=== PATIENT | male | born 1990 | race Caucasian/White ===

== ENCOUNTER 2018-06-20 18:06 | Emergency (ER) | payer MEDICAID, OTHER ==
[2018-06-20] MEDS: CEFTRIAXONE 1 GM INJ IM (22:59)
== END 2018-06-20 23:13 | disposition home or self-care (01) ==
LOC: FTE 18:06
DX: L02.413 Cutaneous abscess of right upper limb (principal); F17.210 Nicotine dependence, cigarettes, uncomplicated; F11.90 Opioid use, unspecified, uncomplicated; F15.90 Other stimulant use, unspecified, uncomplicated
CPT/HCPCS: 96372; 99284-25; J0696